=== PATIENT | female | born 1955 | race Caucasian/White ===

== ENCOUNTER 2018-12-05 13:12 | Day surgery (SDC) | payer OTHER ==
[~2018-12-05] VITALS: Ht 154.9 cm; Wt 78.1 kg
[2018-12-05] MEDS ORDERED: HYDURE500 (13:38)
[2018-12-05] MEDS ORDERED: Adipex-P37.5 MG (13:38)
[2018-12-05] MEDS ORDERED: ASPI81CH (13:39)
[2018-12-05] MEDS ORDERED: Hair, Skin & N1 EACH (13:39)
[2018-12-05] MEDS ORDERED: LOSA25 (13:39)
--- NOTE | 2018-12-05 15:44 | NUR ---
12/05/18 1544 Alpesh Dorman LATE ENTRY-IV FLUIDS D/C
== END 2018-12-05 15:31 | disposition home or self-care (01) ==
LOC: ORSCSDS 13:12
PROVIDERS: Internal Medicine Gastroenterology
PROC: 0DBK8ZX Excision of Ascending Colon, Via Natural or Artificial Opening Endoscopic, Diagnostic (ICD-10-PCS; principal; 2018-12-05 14:30)
DX: Z12.11 Encounter for screening for malignant neoplasm of colon (principal); D12.2 Benign neoplasm of ascending colon; K57.30 Diverticulosis of large intestine without perforation or abscess without bleeding; D75.1 Secondary polycythemia; I10 Essential (primary) hypertension; Z79.82 Long term (current) use of aspirin; Z79.899 Other long term (current) drug therapy
CPT/HCPCS: 88305; J7120

== ENCOUNTER 2020-04-22 05:55 | Day surgery (SDC) | payer OTHER ==
[~2020-04-22] VITALS: Ht 157.5 cm; Wt 100.1 kg
[~2020-04-22 05:55] MED LIST: ASPI81CH PO; Adipex-P37.5 MG; HYDURE500 PO; Hair, Skin & N1 EACH; LOSA25 PO
--- NOTE | 2020-04-22 06:30 | NUR ---
PT ADMITTED TO [facility]. AGREES WITH PLANNED SURGERY. LUNG SOUNDS CLEAR.
--- NOTE | 2020-04-22 06:45 | NUR ---
NOZIN TO NARE BILATERALLY.
--- NOTE | 2020-04-22 10:59 | NUR ---
PT ARRIVED TO UNIT FROM PACU AT APROX 1045. NICOLE WRAP TO R KNEE C/D/I, POLAR PACK IN PLACE. PT ABLE TO WIGGLE/MOVE LE BILAT, REPORTS FULL SENSATION IN RLE.
--- NOTE | 2020-04-23 04:38 | NUR ---
SHIFT SUMMARY POD 1 RIGHT TKA, DRESSING APPEARS CDI. PT IS A/OX4 WITH VSS. ABX ADMINISTERED PER ORDERS. PAIN MANAGED WITH PO MEDICATION/TORADOL/ICE THERAPY. POLAR CRISTIAN IN PLACE T/O SHIFT. REPORTS VOIDING WITHOUT DIFFICUTLY. GALA REGULAR DIET, DENIES NV. SBA W/FWW/GB; AMB IN ROOM AND HALLWAY. UP IN CHAIR AT BEGINNING OF SHIFT. PLAN TO WORKING WITH THERAPY TODAY. WILL CONT TO MONITOR AND GIVE REPORT TO ONCOMING RN.
[2020-04-23 05:04] LABS: BASOPHILS ABSOLUTE AUTO 0.03 K/mm3 (0.00-0.23); BASOPHILS PERCENT AUTO 0 % (0-2); EOSINOPHILS ABSOLUTE AUTO 0.05 K/mm3 (0.00-0.68); EOSINOPHILS PERCENT AUTO 1 % (0-6); Hematocrit 41.3 % (33.0-51.0); Hemoglobin 13.5 g/dL (11.5-16.0); IMMATURE GRAN ABSOLUTE AUTO 0.02 K/mm3 (0.00-0.10); IMMATURE GRAN PERCENT AUTO 0 % (0-1); LYMPHOCYTES ABSOLUTE AUTO 0.84 K/mm3 (0.84-5.20); LYMPHOCYTES PERCENT AUTO 11 % (21-46); MONOCYTES ABSOLUTE AUTO 0.92 K/mm3 (0.16-1.47); MONOCYTES PERCENT AUTO 12 % (4-13); Mean Corpuscular HGB 36.9 pg (26.0-34.0); Mean Corpuscular HGB Conc 32.7 g/dL (31.5-36.5); Mean Corpuscular Volume 113 fL (80-100); Mean Platelet Volume 9.4 fL (9.1-12.4); NEUTROPHILS PERCENT AUTO 75 % (41-73); Platelet Count 378 K/mm3 (150-400); RDW Coefficient Variation 13.2 % (11.7-14.2); RDW Standard Deviation 54.6 fL (35.1-46.3); Red Blood Cell Count 3.66 M/mm3 (3.80-5.20); White Blood Cell Count 7.56 K/mm3 (4.00-11.30)
[2020-04-23 05:22] LABS: Anion Gap 8 mmol/L (6-16); Blood Urea Nitrogen 17 mg/dL (8-24); Bun/Creatinine Ratio 27.1 (12.0-20.0); CO2, Blood 25 mmol/L (21-32); Calcium, Blood 8.3 mg/dL (8.5-10.1); Chloride, Blood 104 mmol/L (98-108); Creatinine, Blood 0.63 mg/dL (0.40-1.00); Glomerular Filtration Rate >60 (60-); Glucose, Blood 121 mg/dL (70-99); Magnesium, Blood 1.9 mg/dL (1.6-2.4); Potassium, Blood 3.6 mmol/L (3.5-5.5); Sodium, Blood 137 mmol/L (136-145)
[2020-04-23] MEDS ORDERED: ENOX40I INJ (09:56)
[2020-04-23] MEDS ORDERED: ROXYBOND5 MG PO (09:58)
[2020-04-23] MEDS ORDERED: PROM25 PO (10:00)
[2020-04-23] MEDS ORDERED: SULTRIDS PO (10:02)
--- NOTE | 2020-04-23 11:14 | NUR ---
DISCHARGE PT DISCHARGED HOME FROM UNIT AT APROX 1114. PT GIVEN WRITTEN AND VERBAL DISCHARGE INSTRUCTIONS AND VERBALIZED UNDERSTANDING OF THESE INSTRUCTIONS. PT STATES SHE ALREADY HAS SCRIPTS AT HOME FOR NEW RX'S GIVEN TO HER AT PRE-OP APPOINTMENT. WHEELCHAIR TO CAR.
--- NOTE | 2020-04-24 09:14 | NUR ---
04/24/20 0914 Leticia Zhao VERIFICATIONS: EDIT CHART.
== END 2020-04-23 11:13 | disposition home or self-care (01) ==
LOC: ORSCMMR 05:55 → ORD 07:30 → ORSCMMR 07:30 → SURS 10:33 → ORSCMMR 04-23 11:13 → SURS 04-23 11:13
PROVIDERS: Orthopaedic Surgery
PROC: 8E0YXBZ Computer Assisted Procedure of Lower Extremity (ICD-10-PCS; principal; 2020-04-22 07:30)
PROC: 0SRC0J9 Replacement of Right Knee Joint with Synthetic Substitute, Cemented, Open Approach (ICD-10-PCS; principal; 2020-04-22 07:30)
DX: M17.11 Unilateral primary osteoarthritis, right knee (principal); I10 Essential (primary) hypertension; E66.01 Morbid (severe) obesity due to excess calories; Z68.41 Body mass index [BMI] 40.0-44.9, adult
CPT/HCPCS: 36415; 73560-RT; 80048; 83735; 85025; 88300; 97110; 97116; 97162; 97530; A9270-GY; C1713; C1776; J0171; J0690; J0735; J1650; J1885; J2250; J2704; J2765; J2795; J3010; J7120

== ENCOUNTER 2023-04-26 06:04 | Day surgery (SDC) | payer MEDICARE, OTHER ==
[2023-04-26] VITALS (14 sets, daily range): BP systolic 104–129; BP diastolic 57–86
[~2023-04-26] VITALS: Ht 157.5 cm; Wt 104.2 kg
[~2023-04-26 06:04] MED LIST changes: +ENOX40I INJ; +PROM25 PO; +ROXYBOND5 MG PO; +SULTRIDS PO
--- NOTE | 2023-04-26 08:30 | NUR ---
04/26/23 0830 Denita Araujo UPON ARRIVAL TO OR, SPINAL EPIDURAL COMPLETED BY DR. BELTRAN. PT TOLERATED WELL. VSS
--- NOTE | 2023-04-26 11:15 | NUR ---
PATIENT ARRIVED FROM PACU TODAY AT 1055. POD 0 LEFT TKA PATIENT IS A&OX4. VS ARE WNL AND IS ON RA. PATIENT HAD A SPINAL DURING PROCEDURE BUT DENIES NUMBNESS OR TINGLING OR PAIN IN ANY EXTREMITIES. SHE IS ABLE TO MOVE ALL FINGERS AND TOES WHEN ASKED. HER LEFT KNEE HAS NICOLE WRAP THAT IS C/D/I. PATIENT IS TOLERATING SMALL AMOUNTS OF PO INTAKE AT THIS TIME. SHE IS LAYING IN BED WITH CALL LIGHT IN REACH.
--- NOTE | 2023-04-26 16:03 | NUR ---
SHIFT SUMMARY: POD 0 LEFT TKA PATIENT IS A&OX4. VS ARE WNL AND IS ON RA. PAIN IS MANAGED WITH ORAL PAIN MEDICATIONS. HER LEFT KNEE HAS AN NICOLE WRAP WITH POLAR PACK IN PLACE THAT IS C/D/I. DENIES NUMBNESS OR TINGLING. CAN MOVE ALL FINGERS AND TOES WHEN ASKED. PATIENT WAS ABLE TO VOID WITH PHYSICAL THERAPY AND WAS A SBA WITH FWW AND GAIT BELT. SHE IS TOLERATING PO INTAKE. PATIENT IS SITTING UP IN THE RECLINER WITH CALL LIGHT WITHIN REACH. CALLS APPROPRIATELY.
[2023-04-27 00:09] VITALS: BP 124/70
[2023-04-27 04:51] VITALS: BP 112/69
[2023-04-27 05:06] LABS: BASOPHILS ABSOLUTE AUTO 0.01 K/mm3 (0.00-0.23); BASOPHILS PERCENT AUTO 0 % (0-2); EOSINOPHILS ABSOLUTE AUTO 0.01 K/mm3 (0.00-0.68); EOSINOPHILS PERCENT AUTO 0 % (0-6); Hematocrit 34.6 % (33.0-51.0); IMMATURE GRAN ABSOLUTE AUTO 0.02 K/mm3 (0.00-0.10); IMMATURE GRAN PERCENT AUTO 0 % (0-1); LYMPHOCYTES ABSOLUTE AUTO 0.68 K/mm3 (0.84-5.20); LYMPHOCYTES PERCENT AUTO 15 % (21-46); MONOCYTES ABSOLUTE AUTO 0.55 K/mm3 (0.16-1.47); MONOCYTES PERCENT AUTO 12 % (4-13); Mean Corpuscular HGB 45.8 pg (26.0-34.0); Mean Corpuscular HGB Conc 34.7 g/dL (31.5-36.5); Mean Corpuscular Volume 132 fL (80-100); Mean Platelet Volume 8.8 fL (9.1-12.4); NEUTROPHILS ABSOLUTE AUTO 3.22 K/mm3 (1.96-9.15); NEUTROPHILS PERCENT AUTO 72 % (41-73); Platelet Count 250 K/mm3 (150-400); RDW Standard Deviation 59.7 fL (35.1-46.3); Red Blood Cell Count 2.62 M/mm3 (3.80-5.20); White Blood Cell Count 4.49 K/mm3 (4.00-11.30)
--- NOTE | 2023-04-27 05:06 | NUR ---
SHIFT SUMMARY POD1 LEFT TKA. SENSATION AND CIRCULATION REMAINS INTACT. DRESSING REMAINS INTACT. VSS. PT SLEPT WELL T/O THE NIGHT. PT AMBULATED TO THE BATHROOM MULTIPLE TIMES TO VOID. TOLLERATING PO INTAKE W/O N/V. MEDICATED FOR PAIN WITH PRN'S AND OXY. NO ACUTE EVENTS NOTED T/O THE NIGHT. PLAN FOR PT TO WORK WITH PT AGAIN TODAY AND D/C HOME. THE PATIENT IS CURRENTLY RESTING, IN NO DISTRESS, CALL LIGHT IN REACH
[2023-04-27 05:23] LABS: Calcium, Blood 8.3 mg/dL (8.5-10.1); Creatinine, Blood 0.71 mg/dL (0.40-1.00); Magnesium, Blood 1.8 mg/dL (1.6-2.4); Potassium, Blood 3.8 mmol/L (3.5-5.5)
[2023-04-27 07:51] VITALS: BP 107/59
[2023-04-27] MEDS ORDERED: Aspir 8181 MG PO (11:08)
[2023-04-27] MEDS ORDERED: SULTRIDS PO (11:08)
[2023-04-27 11:10] VITALS: BP 117/67
[2023-04-27] MEDS ORDERED: OXYC5 PO (11:24)
[2023-04-27 13:28] VITALS: BP 141/80
--- NOTE | 2023-04-27 14:44 | NUR ---
DISCHARGE PT DISCHARGED HOME AT APPROX 1430. PT PROVIDED VERBAL AND WRITTEN INSTRUCTIONS, AND AQUACEL DRESSINGS. DISCHARGE INSTRUCTIONS REVIEWED BY JAE FISHER PRIOR TO MY INSTRUCTION. PT AND PT'S REPORTED UNDERSTANSING. PT WAS A&OX4, VOIDING, VSS, TOLERATING PO, AND AMB. PAIN MANAGED WITH TYLENOL, OXY, AND TORADOL. PT REPORTED NO PAIN AT DISCHARGE. PT'S BELONGINGS WERE RETURNED AND WAS ESCOURTED OUT VIA WHEELCHAIR BY RETA PAGE.
== END 2023-04-27 14:48 | disposition home or self-care (01) ==
LOC: ORSCMMR 06:04 → ORD 07:30 → SURS 10:55 → ORSCMMR 04-27 14:48
PROVIDERS: Orthopaedic Surgery
PROC: 0SRD0J9 Replacement of Left Knee Joint with Synthetic Substitute, Cemented, Open Approach (ICD-10-PCS; principal; 2023-04-26 07:30)
PROC: 8E0YXBZ Computer Assisted Procedure of Lower Extremity (ICD-10-PCS; principal; 2023-04-26 07:30)
DX: M17.12 Unilateral primary osteoarthritis, left knee (principal); I10 Essential (primary) hypertension; Z96.651 Presence of right artificial knee joint
CPT/HCPCS: 36415; 73560-LT; 80048; 83735; 85025; 97110; 97116; 97162; A9270; C1713; C1776; J0171; J0690; J0735; J1885; J2250; J2704; J2795; J3010; J3370; J7050; J7120